=== PATIENT | male | born 1935 | race African-American/Black ===

== ENCOUNTER 2018-03-17 13:42 | Emergency (ER) | payer MEDICARE, OTHER ==
[~2018-03-17] VITALS: Ht 177.8 cm; Wt 74.8 kg
[2018-03-17 13:48] VITALS: BP 164/87
[2018-03-17] MEDS ORDERED: Ketorolac 30mg Inj IV ONE (14:15)
[2018-03-17] MEDS ORDERED: Morphine Sulfate 2mg/ml Inj IVP ONE (14:15)
--- NOTE | 2018-03-17 14:31 | Emergency Room Report ---
History of Present Illness General Chief Complaint: Lower Back Pain or Injury Source: Patient Present Illness HPI Patient presents emergency department today complaining of acute onset of lower back pain. Patient has had lower back pain in the past but became more severe in the last few days. The pain is describes worse with movement of his legs. The patient states that the pain starts in his lower back and radiates down his legs. He seemed to get worse with movement. So severe that he cannot ambulate. Patient denies any difficulty with dysuria or urinary frequency or perineal anesthesia. Denies any injuries or falls. Denies any fever chest pain shortness of breath. Symptoms noted to be severe. Patient cannot ambulate which is why patient daughter called 911 and brought the patient here via ambulance. Patient fairly has been laying in bed the last 3 days. Symptoms noted to be severe. No other modifying factors. No other associated signs and symptoms. No other complaints were noted. Allergies: Coded Allergies: No Known Allergies (Unverified , 03/17/18) Patient History Past Medical History: HTN Past Surgical History: none Pertinent Family History: none Social History: Denies: smoking, alcohol use, drug use Reviewed Nursing Documentation: PMH: Agreed; PSxH: Agreed Nursing Documentation-PMH Past Medical History: No History, Except For Hx Hypertension: Yes Review of Systems All Other Systems: negative except mentioned in HPI Physical Exam Vital Signs Date Time Temp Pulse Resp B/P (MAP) Pulse Ox O2 Delivery O2 Flow Rate FiO2 03/17/18 13:37 98.2 70 18 162/80 100 Room Air 98.2 Sp02 EP Interpretation: reviewed, normal General Appearance: normal inspection, well appearing, no apparent distress, alert Head: atraumatic Eyes: bilateral eye normal inspection ENT: normal ENT inspection, hearing grossly normal, normal voice Neck: normal inspection, full range of motion, supple, no bony tend Respiratory: normal inspection, lungs clear, normal breath sounds, no respiratory distress, no retraction, no wheezing Cardiovascular #1: regular rate, rhythm, no edema Gastrointestinal: normal inspection, normal bowel sounds, non tender, soft, no guarding, no hernia Genitourinary: no CVA tenderness Musculoskeletal: back normal, decreased range of motion - Due to pain, tender - Lower back Neurologic: normal inspection, alert, responsive, speech normal Psychiatric: no delusions, depressed affect Skin: normal inspection, normal color, no rash Medical Decision Making Diagnostic Impression: Primary Impression: Low back pain Additional Impression: UTI (urinary tract infection) ER Course Patient presents emergency department today complaining lower back pain radiating to the leg. Differential considerations sciatica, UTI, radiculopathy just name a few. Patient's exam is consistent with sciatica. However given severe he patient's presentation and the fact that he cannot ambulate I felt the patient require admission. X-rays were noted to be negative by radiology. Urine was positive for UTI. Case was discussed Dr. Davis. Patient is stable for transfer and will be transferred to [facility] for further management. Labs Test 03/17/18 14:01 03/17/18 15:00 03/17/18 16:33 Sodium Level 134 MMOL/L (136-145) Potassium Level 4.6 MMOL/L (3.5-5.1) Chloride Level 98 MMOL/L (98-107) Carbon Dioxide Level 28 MMOL/L (21-32) Anion Gap 8 mmol/L (5-15) Blood Urea Nitrogen 23 mg/dL (7-18) Creatinine 1.1 MG/DL (0.55-1.30) Estimat Glomerular Filtration Rate mL/min (>60) Glucose Level 136 MG/DL (74-106) Calcium Level 9.7 MG/DL (8.5-10.1) Total Bilirubin 0.9 MG/DL (0.2-1.0) Aspartate Amino Transf (AST/SGOT) 118 U/L (15-37) Alanine Aminotransferase (ALT/SGPT) 126 U/L (12-78) Alkaline Phosphatase 90 U/L (46-116) Total Protein 8.4 G/DL (6.4-8.2) Albumin 2.6 G/DL (3.4-5.0) Globulin 5.8 g/dL Albumin/Globulin Ratio 0.4 (1.0-2.7) White Blood Count 15.2 K/UL (4.8-10.8) Red Blood Count 5.22 M/UL (4.70-6.10) Hemoglobin 13.2 G/DL (14.2-18.0) Hematocrit 39.9 % (42.0-52.0) Mean Corpuscular Volume 76 FL (80-99) Mean Corpuscular Hemoglobin 25.2 PG (27.0-31.0) Mean Corpuscular Hemoglobin Concent 33.0 G/DL (32.0-36.0) Red Cell Distribution Width 11.9 % (11.6-14.8) Platelet Count 184 K/UL (150-450) Mean Platelet Volume 7.6 FL (6.5-10.1) Neutrophils (%) (Auto) 79.6 % (45.0-75.0) Lymphocytes (%) (Auto) 10.8 % (20.0-45.0) Monocytes (%) (Auto) 7.0 % (1.0-10.0) Eosinophils (%) (Auto) 0.5 % (0.0-3.0) Basophils (%) (Auto) 2.2 % (0.0-2.0) Urine Color Yellow Urine Appearance Slightly cloudy Urine pH 5 (4.5-8.0) Urine Specific [place] 1.020 (1.005-1.035) Urine Protein 3+ (NEGATIVE) Urine Glucose (UA) Negative (NEGATIVE) Urine Ketones 1+ (NEGATIVE) Urine Blood 3+ (NEGATIVE) Urine Nitrite Negative (NEGATIVE) Urine Bilirubin Negative (NEGATIVE) Urine Urobilinogen 4 MG/DL (0.0-1.0) Urine Leukocyte Esterase 1+ (NEGATIVE) Urine RBC 5-10 /HPF (0 - 0) Urine WBC 15-20 /HPF (0 - 0) Urine Squamous Epithelial Cells Occasional /LPF Urine Bacteria Moderate /HPF (NONE) Urine Mucus Moderate /LPF (NONE/OCC) Last Vital Signs Date Time Temp Pulse Resp B/P (MAP) Pulse Ox O2 Delivery O2 Flow Rate FiO2 03/17/18 13:48 98.1 76 20 164/87 100 Room Air 98.1 Status: improved Disposition: XFER [facility] HOSP Condition: Serious Mack Flores MD Mar 17, 2018 14:31
[2018-03-17 15:21] LABS: BASOPHILS % (AUTO) 2.2 % (0.0-2.0); EOSINOPHILS % (AUTO) 0.5 % (0.0-3.0); HEMATOCRIT 39.9 % (42.0-52.0); HEMOGLOBIN 13.2 G/DL (14.2-18.0); LYMPHOCYTES % (AUTO) 10.8 % (20.0-45.0); MEAN CORPUSCULAR VOLUME 76 FL (80-99); NEUTROPHILS % (AUTO) 79.6 % (45.0-75.0); PLATELET COUNT 184 K/UL (150-450); RED BLOOD COUNT 5.22 M/UL (4.70-6.10); RED CELL DISTRIBUTION WIDTH 11.9 % (11.6-14.8); WHITE BLOOD COUNT 15.2 K/UL (4.8-10.8)
[2018-03-17 15:36] LABS: ANION GAP 8 mmol/L (5-15); BLOOD UREA NITROGEN 23 mg/dL (7-18); CALCIUM 9.7 MG/DL (8.5-10.1); CARBON DIOXIDE 28 MMOL/L (21-32); CHLORIDE 98 MMOL/L (98-107); CREATININE 1.1 MG/DL (0.55-1.30); POTASSIUM 4.6 MMOL/L (3.5-5.1); SODIUM 134 MMOL/L (136-145)
[2018-03-17 15:40] LABS: ALANINE AMINOTRANSFERASE 126 U/L (12-78); ALBUMIN 2.6 G/DL (3.4-5.0); ALBUMIN/GLOBULIN RATIO 0.4 (1.0-2.7); ALKALINE PHOSPHATASE 90 U/L (46-116); ASPARTATE AMINO TRANSFERASE 118 U/L (15-37); BILIRUBIN,TOTAL 0.9 MG/DL (0.2-1.0)
--- NOTE | 2018-03-17 15:48 | Diagnostic Imaging Report ---
Indication: Pelvic pain Technique: One view of the pelvis Comparison: none Findings: No acute fractures. No dislocations. The joint spaces are preserved. There are degenerative changes of the lumbosacral junction Impression: No definite acute bony trauma. Note, however, that in elderly osteoporotic patients, nondisplaced hip and pelvic fractures can easily be occult. Consider cross-sectional imaging for better characterization if there is high clinical suspicion
--- NOTE | 2018-03-17 15:53 | Diagnostic Imaging Report ---
Indication: Back pain Technique: 3 views of the lumbar spine Comparison: None Findings: There is slight anterior offset of L4 on L5, otherwise normal bony alignment. Vertebral body heights are preserved. There is degenerative disc narrowing at L5-S1. The remaining disc spaces are preserved. There are degenerative osteophytes at multiple levels. The bones are osteoporotic. The pedicles are intact. Sacral arches are preserved. Sacroiliac joint spaces are preserved. Surrounding soft tissues demonstrate an abundance of bowel gas Impression: Degenerative changes, as described No acute bony trauma
[2018-03-17 16:44] LABS: APPEARANCE,URINE SLIGHTLY CLOUDY; BILIRUBIN, URINE NEGATIVE (NEGATIVE); GLUCOSE, URINE (UA) NEGATIVE (NEGATIVE); KETONES,URINE 1+ (NEGATIVE); LEUKOCYTE ESTERASE ,URINE 1+ (NEGATIVE); NITRITE,URINE NEGATIVE (NEGATIVE); PH,URINE 5 (4.5-8.0); PROTEIN,URINE 3+ (NEGATIVE); UROBILINOGEN,URINE 4 MG/DL (0.0-1.0)
[2018-03-17 16:45] LABS: COLOR,URINE YELLOW
[2018-03-17 16:47] VITALS: BP 129/70
== END 2018-03-17 16:47 | disposition short-term general hospital (02) ==
LOC: EDBD 13:42 → EMR 14:26
DX: N39.0 Urinary tract infection, site not specified (principal); M54.5 Low back pain; I10 Essential (primary) hypertension
CPT/HCPCS: 36415; 72020; 72170; 80053; 81001; 85025; 87086; 96374; 96375; 99285; J1885; J2270